=== PATIENT | female | born 1950 | race Caucasian/White ===

== ENCOUNTER 2021-07-17 10:06 | Day surgery (SDC) | payer MEDICARE ==
[~2021-07-17 10:06] MED LIST: BUPIVACAINE 0.5% VIAL IJ ONE; Lactated Ringers 1,000 ML IV ONE; XYLOCAINE 1% HCL 20 ML MDV ONE
[2021-07-17] MEDS ORDERED: Xylocaine 1% Vial 30 ML PF IJ ONE (10:07)
[2021-07-17] MEDS ORDERED: Lactated Ringers 1,000 ML IV SCH (10:30)
[2021-07-17] MEDS ORDERED: CEFAZOLIN 2 GM-D5W BAG** 2 GM/50 ML ML IV SCH (10:30)
[2021-07-17] MEDS ORDERED: Lactated Ringers 1,000 ML IV ONE ×2 (10:52→13:46)
[2021-07-17] MEDS ORDERED: CEFAZOLIN 2 GM-D5W BAG** 2 GM/50 ML ML IV ONE (10:52)
[2021-07-17] MEDS ORDERED: DIPRIVAN 200 MG/20 ML IV ONE (13:02)
[2021-07-17] MEDS ORDERED: Zofran 4 MG/2 ML VIAL ONE (13:02)
[2021-07-17] MEDS ORDERED: Quelicin Fliptop 200 MG/10 ML ONE (13:02)
[2021-07-17] MEDS ORDERED: SUBLIMAZE 100 MCG/2 ML ONE (13:02)
[2021-07-17] MEDS ORDERED: Xylocaine-Mpf 2% 5 Ml Vial ONE ×2 (13:02→13:21)
[2021-07-17] MEDS ORDERED: Pre-Attached Lta Kit TP ONE (13:10)
[2021-07-17] MEDS ORDERED: Ephedrine Sulfate 50 MG/ML ONE (14:10)
[2021-07-17] MEDS ORDERED: TORAdol 30 mg Injection ONE (16:12)
[2021-07-17] MEDS ORDERED: MORPHINE SULFATE 10 MG/ML ONE (16:14)
--- NOTE | 2021-07-17 16:33 | XRAY ---
Indication: Left 1st MTP arthrodesis and 2nd-4th hammertoe correction. Intraoperative fluoroscopy provided for 2 minutes 26 seconds. 40 digital spot images submitted for interpretation ultimately demonstrates 1st MTP fusion with intact fixation plate/screws and orthopedic screws traversing 2nd-4th phalanges. Correlate with intraoperative findings/report.
[2021-07-17 17:34] VITALS: O2SAT 99
[2021-07-17 18:05] VITALS: BP 131/74; PULSE 65
--- NOTE | 2021-07-18 09:25 | OP ---
SURGERY DATE/TIME: 07/17/2021 1347 PREOPERATIVE DIAGNOSES: 1) Left hallux varus. 2) Hammer toes 2, 3, 4, 5 of the left foot. 3) Pain with ambulation left foot. 4) Pain left foot. POSTOPERATIVE DIAGNOSIS: 1) Left hallux varus. 2) Hammer toes 2, 3, 4, 5 of the left foot. 3) Pain with ambulation left foot. 4) Pain left foot. PROCEDURES: 1) First metatarsophalangeal joint arthrodesis. 2) Correction of hammer toe 2, 3, and 4 with proximal interphalangeal joint (PIPJ) arthrodesis. 3) Derotational arthroplasty of fifth digit. SURGEON: Rory Garrido DPM. [employer] CERTIFIED INTERNETWORK EXPERT: None. ANESTHESIA: General. HEMOSTASIS: Ankle tourniquet set 250 mm of Mercury for 106 minutes total tourniquet time. ESTIMATED BLOOD LOSS: Less than 20 cc. MATERIALS: [employer] first metatarsophalangeal joint ALPS plate and two - 2.4 mm VPC variable compression screws and one - 3.6 variable compression screw for hammer toe correction, 2-0 Vicryl and 3-0 Nylon. INJECTABLES: Postoperative 30 cc ankle block this is a 1:1 mixture of 1% lidocaine plain and 0.5% bupivacaine plain. INDICATION FOR SURGERY: Adelaida is a very pleasant 71-year-old patient who had multiple surgical interventions in the past with other various providers. She recently did have a flexor contracture on the right foot that did extraordinarily well with in office procedure and was looking forward to proceeding with a procedure to her left foot. The patient did have a bunion correction almost [address] Kang which resulted in hallux varus deformity. This resulted in her having significant pain at the medial aspect of her first metaphalangeal joint with ambulation and range of motion. There were some arthritic changes that were assessed and deemed to be painful for her with range of motion on clinical examination. When held in the appropriate position, the patient did have some pain and contracture with abductor varus rotation of digits 2, 3, 4 and 5. The decision was made to proceed with a first metaphalangeal joint arthrodesis, hammer toe corrections to digits 2, 3, 4 and proceeding with derotational arthroplasty to the fifth digit of the left foot. The patient understood all risks, benefits and complications of the procedure including potential for pain following the procedure, under correction of the issue, delayed union, nonunion, delayed skin healing, nonskin healing, possibility of infection, hematoma, seroma and need for surgical intervention once again at a later date. The patient understands all of these risks and wishes to proceed with surgical intervention at this time. No guarantees were provided as to the outcome. Plenty of time was allowed for the patient to ask questions which were answered to the patient's apparent satisfaction. It is with that we decided to proceed with surgical intervention. DESCRIPTION OF PROCEDURE AND FINDINGS: The patient was brought into the OR and placed on the OR table in the supine position. At this time, adequate general anesthesia was administered until the patient was sedated. The left lower extremity was then prepped and draped in the typical sterile fashion and lowered onto the surgical field. At this time Esmarch was utilized to exsanguinate the leg and the tourniquet inflated to 250 mm of Mercury at the level of the ankle. At this time, a linear incision was made with a 15 blade at the lateral aspect of the first metaphalangeal joint just medial to the extensor hallucis longus. At this time, dissection was carried down using a combination of blunt and sharp dissection being careful not to damage any tendons or neurovascular structures along the way. These structures were encountered and retracted from the surgical field. At this time, it was noted how significant the scar tissue from the previous surgery and the long standing hallux varus contracture. At this time the capsule was dissected with a linear incision over the dorsal aspect of the joint this exposed the first metatarsal head which was found to have a significant amount of osteochondral lesions as well as arthritis. The joint was then released utilizing McGlamry elevator elevating the sesamoids from the plantar aspect of the first metaphalangeal joint. At this time, cup and cone conical reamers were utilized to denude the cartilage at the first metatarsophalangeal joint, first the metatarsal head and then the proximal phalanx. At this time the site was then flushed with copious amounts of sterile saline. A 2.0 mm drill was utilized to provide for microfracture of the subchondral plate in order to provide for vascular channels for bone healing. At this time, the interfragmentary screw introduced from distal medial to proximal lateral. At this time, a dorsal locking ALPS [employer] first metatarsophalangeal plate was introduced at the dorsal aspect of the first metatarsophalangeal joint, this was checked under multiple views and fluoroscopy and deemed to be in an adequate position. At this time, a combination of locking and nonlocking screws were utilized to secure the plate to the dorsal aspect of this joint. Once again this was checked under fluoroscopy and deemed to be in adequate position and clinically acceptable. At this time, assessment of the digital contracture was determined that there was abductor varus rotation residually to digits 3, 4 and 5 along with a hammer toe contracture digit #2, which made us decide to proceed with the hammer toe corrections, this took place similarly for digits 2, 3 and 4 where the dissection was carried out in a horizontal fashion over the dorsal aspect of the proximal interphalangeal joint. At this time the joint was encountered. The metatarsal head was then resected utilizing a sagittal saw and the base was then resected of its cartilaginous base. At this time, copious amounts of sterile saline were utilized to flush the site. A K-wire was retrograded down the proximal phalanx to find the central aspect of the longitudinal axis of the cortex this was then retrograded out of the distal tip of the toe and retrograded back down the proximal phalangeal, this was used as a template for introduction of the VPC MAX compression screws. The third and fourth had a 2.4 mm variable compression screw introduced measuring 30 mm in length, for the second metatarsal because of the caliber of the proximal phalanx was larger, we decided to go with a 3.0 mm variable compression screw. At this time, the position was deemed to be adequate and the reduction was found to be accessible. At this time an abductor varus rotation was performed at the fifth digit with a proximal lateral ellipse incision being made in order to close down the abductor varus rotation. The joint was then resected and this was flushed with copious amounts of sterile saline. At this point, all incisions were then closed with a combination of simple interrupted Vicryl sutures as well as interrupted horizontal mattress-type fashion. At this time a dressing consisting of Betadine, Adaptic, 4x4, Kerlix and LORENA was applied to the left lower extremity covering the toes, this was then secured utilizing a 4 inch and 6 inch LORENA. The patient was then reversed from anesthesia. The tourniquet was let down at approximately 1 hour and 46 minutes into the procedure prior to closure. The patient was given postoperative ankle block consisting of 30 cc of 1:1 mixture of 1% lidocaine plain and 0.5% bupivacaine plain injected in an ankle block-type fashion. The patient handled the procedure without complication and was returned to the postoperative anesthesia care unit with vital signs stable and vascular status intact. The patient's orders as indicated in the patient's discharge chart.
--- NOTE | 2021-07-18 10:30 | XRAY ---
2 minutes 26 seconds of fluoroscopy was used in surgery for a 1st MTP arthrodesis and 2nd-4th hammertoe correction of the left foot.
== END 2021-07-17 18:20 | disposition home or self-care (01) ==
LOC: SDC 10:06
PROVIDERS: ATTEND Podiatrist Foot & Ankle Surgery
DX: M20.32 Hallux varus (acquired), left foot (principal); M20.42 Other hammer toe(s) (acquired), left foot; M79.672 Pain in left foot
CPT/HCPCS: 28285; 28750; 73630; 76000; 99100; J0330; J0690; J1885; J2001; J2270; J2405; J2704; J3010

== ENCOUNTER 2023-06-03 05:46 | Day surgery (SDC) | payer MEDICARE ==
[2023-06-03] MEDS: Lactated Ringers 1,000 ML IV SCH (06:22)
[2023-06-03] MEDS: CEFAZOLIN 2 GM-D5W BAG** 2 GM/50 ML ML IV SCH (06:23)
[2023-06-03 06:58] LABS: Hematocrit 39.1 % (35-47); Hemoglobin 12.5 g/dL (12.0-16.0); Mean Cell Volume 93.8 fL (78-100); Mean Platelet Volume 10.1 fL (7.5-11.0); Platelet Count 191 x10^3/uL (150-450); Red Blood Count 4.17 x10^6/uL (4.1-5.4); White Blood Count 6.2 x10^3/uL (4.0-10.5)
[2023-06-03] MEDS ORDERED: Xylocaine 1% Vial 30 ML PF IJ ONE (06:58)
[2023-06-03] MEDS ORDERED: Marcaine Mpf 0.5% Vial 30 Ml ONE (06:58)
[2023-06-03 07:06] VITALS: RESP 18; O2SAT 95
[2023-06-03 07:20] LABS: ALBUMIN 4.3 g/dL (3.5-5.0); BILIRUBIN,TOTAL 0.6 mg/dL (0.2-1.3); Calcium 9.2 mg/dL (8.4-10.2); Creatinine 1 0.71 mg/dL (0.52-1.04); EST GLOMERULAR FILTRATION RATE 88.6 ML/MIN; Potassium 3.8 mmol/L (3.5-5.1); Total Protein 7.6 g/dL (6.3-8.2)
[2023-06-03 07:22] LABS: INR 0.96 (0.8-3.0); PROTIME 10.5 SECONDS (9.4-12.5); PTT 24.4 SECONDS (25.1-36.5)
[2023-06-03] MEDS ORDERED: DIPRIVAN 200 MG/20 ML IV ONE (08:01)
[2023-06-03] MEDS ORDERED: Zofran 4 MG/2 ML VIAL ONE (08:02)
[2023-06-03] MEDS ORDERED: Decadron 4 MG INJ ONE (08:02)
[2023-06-03] MEDS ORDERED: Xylocaine-Mpf 2% 5 Ml Vial ONE (08:02)
[2023-06-03] MEDS ORDERED: SUBLIMAZE 100 MCG/2 ML ONE (08:05)
[2023-06-03] MEDS ORDERED: Quelicin Fliptop 200 MG/10 ML ONE (08:14)
[2023-06-03] MEDS ORDERED: Ephedrine Sulfate 50 MG/ML ONE (08:40)
[2023-06-03] MEDS ORDERED: PHENYLEPHRINE HCL ONE (08:53)
[2023-06-03] MEDS ORDERED: DEXMEDETOMIDINE 80 MCG/20ML-NS IV ONE (10:37)
[2023-06-03] MEDS ORDERED: Versed 2 MG/2 ML Injection ONE (11:10)
--- NOTE | 2023-06-03 11:34 | XRAY ---
Indication: Left foot kaitlin osteotomy, hardware removal, 5th hammertoe correction, and IP joint arthrodesis hallux. Intraoperative fluoroscopy provided for 5 minutes 6 seconds. 22 digital spot images submitted for interpretation demonstrates revision first IP joint arthrodesis with new fixation plate/screws. Also 1st-4th toe arthrodesis and 2nd/3rd metatarsal head kaitlin osteotomy all with intact fixation screws. Correlate with intraoperative findings/report.
[2023-06-03 12:54] VITALS: BP 107/65; PULSE 62; TEMP 97
--- NOTE | 2023-06-03 15:21 | XRAY ---
Five minutes and 6 seconds of fluoroscopy was used in surgery for a left foot kaitlin osteotomy, hardware removal, 5th hammertoe correction, and IP joint arthrodesis hallux.
--- NOTE | 2023-06-04 09:05 | OP ---
SURGERY DATE/TIME: 06/03/2023 0814 PREOPERATIVE DIAGNOSES: 1) Painful orthopedic hardware in situ left foot. 2) Malunion of first metaphalangeal joint arthrodesis. 3) Deformity of metatarsal. 4) Ligamentous laxity second metaphalangeal joint. 5) Hammer toe fifth digit. 6) Transverse plane deformity digits 2, 3 and 4 left foot. 7) Hallux malleus. POSTOPERATIVE DIAGNOSES: 1) Painful orthopedic hardware in situ left foot. 2) Malunion of first metaphalangeal joint arthrodesis. 3) Deformity of metatarsal. 4) Ligamentous laxity second metaphalangeal joint. 5) Hammer toe fifth digit. 6) Transverse plane deformity digits 2, 3 and 4 left foot. PROCEDURES: 1) Removal of hardware first metaphalangeal joint. 2) Revision of first metaphalangeal joint arthrodesis. 3) Chani osteotomy 2 and 3. 4) Lateral collateral ligament repair second metatarsophalangeal joint. 5) Hammer toe correction fifth digit. 6) Interphalangeal joint arthrodesis. SURGEON: Rory Garrido DPM. MARKETING PRODUCTION SPECIALIST: None. ANESTHESIA: General with an intraoperative local block. HEMOSTASIS: Ankle tourniquet set to 250 mm of Mercury for 119 total tourniquet minutes. ESTIMATED BLOOD LOSS: Approximately 5 cc. MATERIALS: 4.0 x 40 VPC x2 and a 3.4 x 28 mm VPC screw. A 2.0 x 14 mm x2 and then a 1.45 JuggerKnot, 9 Betta Link for lateral collateral ligament repair, 4-0 Monocryl, 4-0 Nylon. INJECTABLES: 30 cc of 1:1 mixture of 1% lidocaine plain and 0.5% bupivacaine plain injected in a digital block to the fifth digit as well as a Jc block and a metatarsal block to the first, second and third metatarsals. INDICATION FOR SURGERY: Adelaida is a very pleasant 73-year-old female well known to my service for a residual hallux varus that she suffered as a result of another provider bunion correction in the past. As a result, the patient had a significant rigid deformity and a fusion was warranted in her case. That being said, we proceeded with the fusion which the patient was happy with however recently there was noticed that there was not a complete correction of the varus position and this resulted in some pain with ambulation. More importantly her second and third toes were abutting up against one another and the first digit which caused her a significant amount of pain with ambulation and shoe gear. As a result, the patient wished to proceed with surgical intervention in order to correct this deformity. The patient understands all risks, complications and benefits of surgical intervention at this time including but not limited to infection, hematoma, seroma, and possibility of delayed wound healing, nonwound healing, delayed bone healing, nonunion or possibility of failure of surgical intervention and need for further surgical intervention at a later date. There have been no guarantees provided as to the outcome of surgical intervention at this time. Plenty of time was allowed for the patient to ask questions which were answered to her apparent satisfaction. It is at this time we decided to proceed. DESCRIPTION OF PROCEDURE AND FINDINGS: The patient is brought into the OR and placed on the OR table in the supine position. At this time general anesthesia was administered to the patient until she was sedated. The ankle tourniquet was applied to the left ankle and set to 250 mm of Mercury. At this time the left foot was prepped and draped in the typical sterile fashion and lowered onto the surgical field. Attention was directed to the dorsal aspect of the first metaphalangeal joint. After Esmarch and exsanguinating the leg and inflating the tourniquet, the tourniquet was then inflated. A linear incision was made along the scar at the metatarsophalangeal joint. The hardware was removed from both the dorsal and the interfragmentary location at the first metaphalangeal joint. Osteotomy was performed at the level of the joint with a larger wedge taken from the lateral aspect of the joint in order to bring the toe in a more neutral position. After this was performed, fenestration was carried out of the first metatarsophalangeal joint and two crossing screws were utilized to hold the joint position at approximately 5 degrees of dorsiflexion relative to the metatarsal base, this was in adequate position. At this time attention was directed to the first interphalangeal joint of the left foot where joint resection took place. Joint preparation was then performed and a single 4.0 x 40 VPC screw was introduced and gained excellent compression in this site. From that standpoint, we moved on to the [facility] where linear incision was made making sure not to damage any neurovascular structures along the way. The extensor tendon was retracted out of the site and a Chani osteotomy was performed with the 18 mm sagittal saw parallel to the joint the weightbearing surface shifting the metatarsal head back and medially in order to get a more medialized position of the second digit. At this time this was temporarily pinned and a 2.0 x 14 mm screw was introduced. The overhang of the cartilage over that site was then removed. Copious amounts of sterile saline were utilized to flush the joint. At this time the same procedure took place at the third metatarsal head utilizing the same 2.0 x 14 mm screw. At this time the fifth digit, a derotational arthroplasty was performed and the joint was resected. From that standpoint, the foot was loaded and deemed to be in an adequate position. However, the second digit still wanted to splay into the first so decision was made for a lateral collateral ligament repair utilizing a 1.45 JuggerKnot anchored into the second metatarsal and then secured to the base of the proximal phalanx of the second digit utilizing a 2.9 Betta Link. This was checked under fluoroscopic guidance and deemed to be in adequate position. Following this, sterile saline was utilized to flush all surgical sites. 4-0 Monocryl was utilized to coapt the subcutaneous skin edges and 4-0 Nylon to coapt the skin in an everted position utilizing horizontal mattress. Following this, a dressing consisting of Betadine, Adaptic, 4x4, Kerlix and LORENA was applied to the patient's left lower extremity with the foot orthogonal relative to longitudinal axis of the leg. The patient was reversed from anesthesia and returned to the postoperative anesthesia care unit with vital signs stable and vascular status intact. The patient handled the anesthesia as well as the procedure without significant complication. Postoperative orders as indicated in the patient's discharge chart.
== END 2023-06-03 13:10 | disposition home or self-care (01) ==
LOC: SDC 05:46
PROVIDERS: ATTEND Podiatrist Foot & Ankle Surgery
DX: T84.84XA Pain due to internal orthopedic prosthetic devices, implants and grafts, initial encounter (principal); M21.6X2 Other acquired deformities of left foot; M24.275 Disorder of ligament, left foot; M20.42 Other hammer toe(s) (acquired), left foot; M20.32 Hallux varus (acquired), left foot
CPT/HCPCS: 20680; 27696; 28285; 28308; 28750; 28755; 28899; 36415; 73630; 76000; 80053; 85027; 85610; 85730; 93005; 99100; C1713; J0330; J0690; J1100; J2001; J2250; J2371; J2405; J2704; J3010